=== PATIENT | female | born 1970 | race Caucasian/White ===

== ENCOUNTER 2021-06-08 03:54 | Outpatient (CLI) | payer MEDICAID, SELFPAY ==
[2021-06-08 08:12] LABS: Abs Immature Grans 0.04 10^3/uL (0.0-0.06); Absolute Basophil Count 0.05 10^3/uL (0.0-0.2); Absolute Eosinophil Count 0.14 10^3/uL (0.0-0.7); Absolute Lymphocyte Count 2.51 10^3/uL (1.2-3.4); Absolute Monocyte Count 0.79 10^3/uL (0.1-0.8); Basophils % 0.5; Eosinophils % 1.4; HCT 41.4 % (36.0-46.0); HGB 13.2 g/dL (11.2-15.7); Immature Grans % 0.4; MCHC 31.9 % (32.0-36.0); MCV 87.9 fL (80-95); MPV 10.1 fL (8.0-11.0); Monocytes % 7.9; Neutrophils % 64.8; Nucleated RBC 0 %; Platelet Count 341 10^3/uL (130-400); RBC 4.71 10^6/uL (3.93-5.22); RDW 13.1 % (11.7-14.6); RDW-SD 42.6 fL; WBC 10.03 10^3/uL (4.4-10.8)
[2021-06-08 08:15] LABS: ESR 22 mm/hr (0-20)
[2021-06-08 09:16] LABS: Iron 51 ug/dL (50-170); Total Iron Binding Capacity 261 ug/dL (250-450)
[2021-06-08 09:46] LABS: ALT 21 U/L (14-59); AST 12 U/L (15-37); Albumin 3.8 g/dL (3.4-5.0); Alkaline Phosphatase 68 U/L (46-116); Anion Gap 10.5 mmol/L (3-11); BUN 17 mg/dL (7-18); Bilirubin, Total 0.7 mg/dL (0.2-1.0); CO2 25.5 mmol/L (21.0-32.0); CREATININE 1.2 mg/dL (0.55-1.02); Calcium 9.1 mg/dL (8.5-10.1); Chloride 106 mmol/L (98-107); Estimated GFR 47.75 (mL/min/1.73m2); Folate 5.3 ng/mL (8.6-20.0); Glucose 102 mg/dL (74-106); Potassium 4.5 mmol/L (3.5-5.1); Sodium 142 mmol/L (136-145); TSH 2.21 uIU/mL (0.36-3.74); Total Protein 6.9 g/dL (6.4-8.2); Vitamin B12 470 pg/mL (193-986)
[2021-06-08 10:14] LABS: C-Reactive Protein 0.55 mg/dL (0.0-0.3); FREE T4 1.05 ng/dL (0.76-1.46)
[2021-06-08 17:39] LABS: T3,Free 3.2 pg/mL (2.8-5.3)
[2021-06-08 18:23] LABS: Progesterone 0.2 ng/mL (See Table)
[2021-06-08 19:51] LABS: FSH 6.9 mIU/mL (See Note); Ferritin 25 ng/mL (10-291); Thyroperoxidase Antibody >1300 U/mL (<=60)
[2021-06-08 19:55] LABS: LH 5.4 mIU/mL (See Note)
[2021-06-12 16:50] LABS: Dehydroepiandrosterone (DHEA) 2.5 ng/mL (<8.0); Estradiol, Mass Spectrometry 177 pg/mL; Estrone 143 pg/mL
== END 2021-06-08 03:55 | disposition home or self-care (01) ==
LOC: LBO 03:54
PROVIDERS: Visit Provider Naturopath
DX: R53.83 Other fatigue (principal); R25.2 Cramp and spasm; N92.6 Irregular menstruation, unspecified
CPT/HCPCS: 36415; 80053; 82533; 85652; 82607; 82626; 82670; 82679; 82728; 82746; 83001; 83002; 83540; 83550; 83735; 84144; 84439; 84443; 84481; 85025; 86140; 86376

== ENCOUNTER 2021-06-10 15:03 | Outpatient (REF) | payer MEDICAID, SELFPAY ==
[2021-06-15 23:18] LABS: Cortisol, U 16 mcg/24 h (3.5-45); Urine Volume 2275 mL
== END 2021-06-10 15:04 | disposition home or self-care (01) ==
LOC: LBN 15:03
PROVIDERS: Visit Provider Naturopath
DX: R53.83 Other fatigue (principal); R25.2 Cramp and spasm; N92.6 Irregular menstruation, unspecified
CPT/HCPCS: 81050; 82530; 83789

== ENCOUNTER 2021-07-05 04:08 | Outpatient (CLI) | payer MEDICAID, SELFPAY ==
--- NOTE | 2021-07-05 16:15 | RT.EKG_ITS ---
APPROVED REPORT Exam: Resting ECG Reason for Exam: ESSENTIAL HYPERTENSION Patient Location: O HR:61 bpm ECG Measurements Heart Rate 61 AXIS TN 173 P 3 QRSd 98 QRS 52 QT 427 T 0 QTc 430 Conclusion Sinus rhythm...normal P axis, V-rate 60- 99
== END 2021-07-05 04:09 | disposition home or self-care (01) ==
LOC: RT 04:08
PROVIDERS: Visit Provider Naturopath
DX: I10 Essential (primary) hypertension (principal)
CPT/HCPCS: 93005; 93010

== ENCOUNTER 2021-07-05 16:59 | Outpatient (REF) | payer MEDICAID, SELFPAY ==
[2021-07-05 19:40] LABS: Bilirubin Negative (Negative); Blood Negative (Negative); Clarity Clear (Clear); Glucose Negative (Negative); Ketones Negative (Negative); Leukocyte Esterase Negative (Negative); Nitrite Negative (Negative); Specific Gravity <= 1.005 (1.005-1.025); Urobilinogen 0.2 EU/dL (Up TO 0.2); pH 5.5 (5-8)
== END 2021-07-05 17:00 | disposition home or self-care (01) ==
LOC: LBN 16:59
PROVIDERS: Visit Provider Naturopath
DX: I10 Essential (primary) hypertension (principal)
CPT/HCPCS: 81003